=== PATIENT | male | born 1985 | race Caucasian/White ===

== ENCOUNTER 2019-03-21 21:03 | Emergency (ER) | payer SELFPAY ==
[~2019-03-21] VITALS: Ht 182.9 cm; Wt 84.0 kg
[2019-03-21 21:17] VITALS: BP 112/55
== END 2019-03-21 22:07 | disposition left against medical advice (07) ==
LOC: ER 21:38
DX: Z53.21 Procedure and treatment not carried out due to patient leaving prior to being seen by health care provider (principal)